=== PATIENT | female | born 1960 | race Caucasian/White ===

== ENCOUNTER 2017-11-02 15:16 | Emergency (ER) | payer BC ==
[2017-11-02 16:00] VITALS: BP 140/86
--- NOTE | 2017-11-02 16:48 | UC ---
Skin Complaint HPI - HPI Summary HPI Summary: 57 year old female with rash. ONSET OF RASH THIS MORNING ON HANDS, FACE AND BACK. No fever. No SHEN. No sore throat. No recent sick contacts. Has not taken any medication for this at this time. Bought a near pear of pajamas 3 nights ago and wore them without washing them. Has never had this before. No difficulty breathing or SOB. No throat closing Was only on the arms this AM and has now spread to the left side of face in the past few hours. [ End ] - History of Current Complaint Chief Complaint: UCRash Time Seen by Provider: 11/02/17 16:43 Stated Complaint: RASH FACE/ARMS/HANDS Hx Obtained From: Patient ?: No Onset/Duration: Sudden Onset Timing: Constant Aggravating Factor(s): Nothing Alleviating Factor(s): Nothing - Allergy/Home Medications Allergies/Adverse Reactions: Allergies Allergy/AdvReac Type Severity Reaction Status Date / Time No Known Allergies Allergy Verified 11/02/17 16:01 Home Medications: Home Medications Cetirizine HCl [Zyrtec Allergy 10 MG TAB] 10 mg PO DAILY 11/02/17 [History Confirmed 11/02/17] Metoprolol 1 tab PO DAILY 11/02/17 [History Confirmed 11/02/17] Review of Systems Skin: Rash Is Patient Immunocompromised?: No All Other Systems Reviewed And Are Negative: Yes PMH/Surg Hx/FS Hx/Imm Hx Previously Healthy: Yes - Surgical History Surgical History: Yes Surgery Procedure, Year, and Place: [facility]. . tubal ligation - Family History Known Family History: Positive: Other - mom lung cancer - Social History Occupation: Employed Full-time - landscape artist Alcohol Use: Weekly Alcohol Amount: wine or hard cider drink or beer nightly Substance Use Type: None Smoking Status (MU): Never Smoked Tobacco Physical Exam Triage Information Reviewed: Yes Appearance: Well-Appearing, No Pain Distress, Well-Nourished Vital Signs: Initial Vital Signs Temp 98.6 F 11/02/17 15:55 Pulse 63 11/02/17 15:55 Resp 16 11/02/17 15:55 BP 140/86 11/02/17 15:55 Pulse Ox 99 11/02/17 15:55 Vital Signs Reviewed: Yes Eye Exam: Normal ENT Exam: Normal Respiratory Exam: Normal Cardiovascular Exam: Normal Neurological Exam: Normal Psychological Exam: Normal Skin: Positive: rashes - urticarial rash on the left side of face / cheeks, b/l upper extremity as well as per patient on the chest and back. no discharge. no erythema. no eccymosis . Course/Dx - Course Course Of Treatment: solumedrol today. start atarax tonight and medrol tomorrow . she declined steroid cream. go to ED if develop any SOB/ difficulty breathing or worsened rash - Differential Diagnoses - Skin Complaint Differential Diagnoses: Contact Dermatitis, Eczema, Impetigo, Local Allergic Reaction, Urticaria - Diagnoses Provider Diagnoses: urticaria / contact dermatitis Discharge - Discharge Plan Condition: Good Disposition: HOME Prescriptions: hydrOXYzine HCL TAB* [Atarax 25 MG TAB*] 25 mg PO TID PRN #20 tab PRN Reason: Rash Methylprednisolone [Medrol Dosepak 4 MG*] 0 mg PO .SEE JOSÉ MIGUEL INSTRUCTION #1 tab Patient Education Materials: Urticaria (ED) Referrals: Blank Edge MD [Primary Care Provider] - 4 Days (if not improved )
[2017-11-02] MEDS ORDERED: methylPREDNISolone 125 MG* 2 ML VIAL IM ONE (16:56)
== END 2017-11-02 17:21 | disposition home or self-care (01) ==
LOC: UCCORT 15:16
DX: L50.9 Urticaria, unspecified (principal); L25.9 Unspecified contact dermatitis, unspecified cause; Z90.49 Acquired absence of other specified parts of digestive tract
CPT/HCPCS: 96372; 99212; G0463; J2930